=== PATIENT | female | born 1950 | race Caucasian/White ===

== ENCOUNTER 2018-01-23 19:29 | Emergency (ER) | payer MEDICARE, MEDICAID ==
[2018-01-23] MEDS ORDERED: ENOXAPARIN SODIUM INJ 60 MG/0.6 ML DISP.SYRIN SUBCUT SCH (20:00)
--- NOTE | 2018-01-23 20:01 | ER Document Report ---
ED General - General Chief Complaint: Leg Pain Stated Complaint: LEG PAIN Time Seen by Provider: 01/23/18 19:35 Notes: Patient is a 68-year old female with a past medical history of peripheral arterial disease, status post femoral arterial stenting in the right leg in the remote past who presents with an acute onset of severe right foot pain. The patient states that she was doing well throughout the day today without any issues and that when she stood up from her chair just prior to arrival she noticed a significant burning, stinging pain to her right foot that was worsened by exertion. She notes that she saw that the right foot was effectively purple when it had been previously normal in color. She denies any history of similar symptoms in the past. She denies any trauma or injury to the area. She has been taking aspirin but is not on any other form of anticoagulation. She has not contacted her general doctor regarding today's concerns. She denies fever or constitutional symptoms. Nothing improves her pain which at this point she does describe is being a mild, burning, stinging pain to the right foot and calf. - Related Data Allergies/Adverse Reactions: acetaminophen [From Darvocet-N] Allergy (Verified 01/23/18 20:43) oxycodone [From Percocet] Allergy (Verified 01/23/18 20:44) propoxyphene [From Darvocet-N] Allergy (Verified 01/23/18 20:43) Past Medical History - General Information source: Patient - Social History Smoking Status: Current Every Day Smoker Frequency of alcohol use: None Drug Abuse: None Lives with: Family Family History: Reviewed & Not Pertinent Patient has suicidal ideation: No Patient has homicidal ideation: No Renal/ Medical History: Denies: Hx Peritoneal Dialysis Musculoskeletal Medical History: Reports Hx Arthritis Past Surgical History: Reports: Hx Abdominal Surgery - AAA, Hx Orthopedic Surgery - bilateral hip replacment Review of Systems - Review of Systems Notes: Constitutional: Negative for fever. HENT: Negative for sore throat. Eyes: Negative for visual changes. Cardiovascular: Negative for chest pain. Respiratory: Negative for shortness of breath. Gastrointestinal: Negative for abdominal pain, vomiting or diarrhea. Genitourinary: Negative for dysuria. Musculoskeletal: Positive for right leg pain Skin: Negative for rash. Neurological: Negative for headaches, weakness or numbness. 10 point ROS negative except as marked above and in HPI. Physical Exam - Vital signs Vitals: Resp Pulse Ox 17 97 01/23/18 20:32 01/23/18 20:32 Interpretation: Normal Notes: PHYSICAL EXAMINATION: GENERAL: Appears moderately uncomfortable but in no acute distress HEAD: Atraumatic, normocephalic. EYES: Pupils equal round and reactive to light, extraocular movements intact, sclera anicteric, conjunctiva are normal. ENT: nares patent, oropharynx clear without exudates. Moderately dry mucous membranes. NECK: Normal range of motion, supple without lymphadenopathy LUNGS: Breath sounds clear to auscultation bilaterally and equal. No wheezes rales or rhonchi. HEART: Regular rate and rhythm without murmurs. There is effectively no capillary refill in any of the digits of the right foot. Possibly very faint DP pulse. Pulse is able to be obtained with a bedside Doppler although this is extremely faint. ABDOMEN: Soft, nontender, normoactive bowel sounds. No guarding, no rebound. No masses appreciated. EXTREMITIES: The right foot is visibly a paler, cespedes or color than the left. Patient has minimal sensation on palpation of the area. Effectively the entire leg below the level of the knee on the right side is much cooler than that of the left. NEUROLOGICAL: No focal neurological deficits. Moves all extremities spontaneously and on command. PSYCH: Normal mood, normal affect. SKIN: See extremity section regarding right foot. Course - Re-evaluation Re-evalutation: 01/23/18 20:00 Patient presents with a very cold, pale right foot and right lower extremity below the level of the knee. This apparently occurred acutely suggesting an acute arterial embolism. Patient has a known history of a femoral stent that was placed several years back in the right lower extremity. Currently only takes aspirin. She does have a very faintly palpable DP pulse. The patient will go immediately for an arterial duplex ultrasound and a dose of Lovenox will be given. Anticipate that the patient may require transfer to a facility with vascular surgery support. 2049-I have gone to the bedside with the Doppler oil processing technician to review the results. It appears at this point the patient has no remaining DP flow. This is extremely worrisome for progressing loss of blood flow and ischemia to the tissue although remarkably the patient is not in substantial pain at this point. Will continue to reassess. I have contacted [facility]ef[facility] and requested to speak to the vascular surgeon. 01/23/18 21:31 I have spoken with the vascular surgeon on-call at [facility] who is excepted the patient in transfer. He has requested that patient be started on heparin infusion despite being given Lovenox which he states will not act quickly enough. This will be completed. The patient's arterial duplex ultrasound no longer shows any dopplerable pulse in the dorsalis pedis. The patient will be transferred as rapidly as possible. This is been explained to the patient and she does understand the gravity of the nature of her presentation. 2300-patient's clinical exam remains unchanged. She is stable and appropriate for rapid transport. - Vital Signs Vital signs: Temp Pulse Resp BP Pulse Ox 97.8 F 18 161/83 H 97 01/23/18 22:08 01/23/18 22:01 01/23/18 22:01 01/23/18 22:01 - Laboratory Result Diagrams: 01/23/18 20:15 01/23/18 22:14 Laboratory results interpreted by me: 01/23/18 01/23/18 20:15 22:14 Hgb 15.6 H RDW 14.8 H Seg Neutrophils % 79.1 H Glucose 114 H - Diagnostic Test Radiology reviewed: Image reviewed Critical Care Note - Critical Care Note Total time excluding time spent on procedures (mins): 38 Comments: Critical care time spent obtaining history from patient or surrogate, discussions with consultants, development of treatment plan with patient or surrogate, evaluation of patient's response to treatment, examination of patient , ordering and performing treatments and interventions, ordering and review of laboratory studies, re-evaluation of patient's condition, ordering and review of radiographic studies and review of old charts Discharge - Discharge Clinical Impression: 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
[2018-01-23 20:32] LABS: ABSOLUTE LYMPHOCYTES (AUTO) 1.2 10^3/uL (0.5-4.7); ABSOLUTE MONOCYTES (AUTO) 0.6 10^3/uL (0.1-1.4); BASOPHILS % (AUTO) 0.5 % (0-2); EOSINOPHILS % (AUTO) 0.3 % (0-6); HEMATOCRIT 45.6 % (36.0-47.0); HEMOGLOBIN 15.6 g/dL (12.0-15.5); LYMPHOCYTES % (AUTO) 13.2 % (13-45); MEAN CORPUSCULAR HEMOGLOBIN 30.7 pg (27.0-33.4); MEAN CORPUSCULAR HGB CONC 34.2 g/dL (32.0-36.0); MEAN CORPUSCULAR VOLUME 90 fl (80-97); MONOCYTES % (AUTO) 6.9 % (3-13); PLATELET COUNT 160 10^3/uL (150-450); RED BLOOD COUNT 5.08 10^6/uL (3.72-5.28); RED CELL DISTRIBUTION WIDTH 14.8 % (11.5-14.0); SEGMENTED NEUTROPHILS % (AUTO) 79.1 % (42-78); TOTAL CELLS COUNTED % (AUTO) 100 %; WHITE BLOOD COUNT 8.9 10^3/uL (4.0-10.5)
[2018-01-23 20:41] LABS: INTERNATIONAL RATION (INR) 0.98; PROTHROMBIN TIME 13.5 SEC (11.4-15.4)
[2018-01-23] MEDS ORDERED: HEPARIN SODIUM,PORCINE/D5W 25,000 UNIT/250 ML RTUINJ IV PRN (21:26)
[2018-01-23 22:37] VITALS: BP 161/83
[2018-01-23 22:37] LABS: ALANINE AMINOTRANSFERASE 18 U/L (9-52); ALBUMIN 4.1 g/dL (3.5-5.0); ALKALINE PHOSPHATASE 94 U/L (38-126); ANION GAP 12 (5-19); ASPARTATE AMINO TRANSFERASE 23 U/L (14-36); BILIRUBIN,DIRECT 0.4 mg/dL (0.0-0.4); BILIRUBIN,TOTAL 0.5 mg/dL (0.2-1.3); BLOOD UREA NITROGEN 10 mg/dL (7-20); CALCIUM 9.3 mg/dL (8.4-10.2); CARBON DIOXIDE 24 mmol/L (22-30); CHLORIDE 101 mmol/L (98-107); CREATINE KINASE 73 U/L (30-135); GLUCOSE 114 mg/dL (75-110); POTASSIUM 3.9 mmol/L (3.6-5.0); SODIUM 137.2 mmol/L (137-145)
--- NOTE | 2018-01-24 08:05 | RADIOLOGY REPORT (SQ) ---
EXAM DESCRIPTION: ARTERIAL LOWER EXTREM UNILAT COMPLETED DATE/TIME: 01/23/2018 10:24 pm REASON FOR STUDY: cold, near pulseless right foot COMPARISON: None. TECHNIQUE: Dynamic and static cespedes scale and color images acquired of the right lower extremity bea linda. Additional selected spectral images recorded. ABIs not recorded. LIMITATIONS: None. FINDINGS: RIGHT LEG: ABIS: Not performed INFLOW ARTERIES: Monophasic waveform in the right common femoral artery with delayed systolic upstrok e suggesting iliac inflow disease. FEMORAL ARTERIES:Patent right proximal common femoral artery stent. Monophasic waveform in the right common femoral artery with delayed systolic upstroke suggesting iliac inflow disease. Normal veloci ty. Monophasic normal velocities in the right profunda femoral artery. Monophasic normal velocities in the proximal right superficial femoral artery. The mid superficial femoral artery is occluded, w ith reconstitution of the distal superficial femoral artery near the adductor canal. POPLITEAL ARTERY:Multiphasic waveforms. Normal, no velocity elevation to suggest focal stenosis. Norm al color Doppler evaluation. No aneurysm. PATENT TIBIOPERONEAL TRUNK AND 3 VESSEL RUNOFF: Tibioperoneal trunk is patent. Posterior tibial bea ry is patent throughout the calf to the ankle. Anterior tibial artery is occluded proximally. Peron eal artery not identified. TBI: Not performed. OTHER: No other significant finding. IMPRESSION: Right iliac inflow disease Patent right common femoral artery stent Right superficial femoral artery occluded along its mid 3rd 1 vessel runoff via posterior tibial artery COMMENT: [facility] NORMAL: Greater than 1.0 MINIMAL DISEASE: 0.9 to 1.0 CLAUDICATION: 0.5 to 0.9 SEVERE ARTERIAL DISEASE: Less than 0.5 [facility] NORMAL: Greater than 1.0 (1.2 If Heavy Calcifications) NORMAL TO MILD ISCHEMIA: 0.8 to 1.0 MODERATE ISCHEMIA: 0.4 to 0.8 SEVERE ISCHEMIA: Less than 0.4 TECHNICAL DOCUMENTATION: JOB ID: [id number] [employer]- All Rights Reserved Reading location - IP/workstation name: [email or web address]
[2018-01-24] MEDS ORDERED: ENOXAPARIN SODIUM INJ 60 MG/0.6 ML DISP.SYRIN SUBCUT SCH (10:00)
== END 2018-01-23 23:05 | disposition short-term general hospital (02) ==
LOC: ER 19:29
DX: I74.3 Embolism and thrombosis of arteries of the lower extremities (principal); M79.604 Pain in right leg; F17.200 Nicotine dependence, unspecified, uncomplicated; Z88.6 Allergy status to analgesic agent; Z96.643 Presence of artificial hip joint, bilateral; Z79.82 Long term (current) use of aspirin
CPT/HCPCS: 99291; 96372; 96374; 36415; 82550; 85025; 85610; 85730; 80053; 93926; J1644; J1650